=== PATIENT | female | born 1950 | race Caucasian/White ===

== ENCOUNTER → 2017-11-10 | Outpatient (CLI) | payer OTHER, MEDICAID ==
[~2017-11-10] MED LIST: ADVA100A INH; ALBUAER3 INH; ALEN1TAB48 PO; ASPI1TAB57 PO; ASPI81 PO; ATOR20TA15 PO; ATOR20TA42 PO; CARV3.125 PO; CLOP75 PO; COQ-30CA2 PO; ESCI20TA PO; FLUTI110I INH; LEVO25TA4 PO; LEXA20TA PO; LORA1TAB12 PO; MEMA1TAB PO; NEXI40CA PO; NITR1SUB3 SL; RANI150T PO; SERT25TA83 PO; TOPR25TA2 PO; TRAZ50TA12 PO
--- NOTE | 2017-11-10 14:01 | RADRPT ---
EXAM DATE/TIME: 11/10/2017 13:47 [facility] COMPARISON: No previous studies available for comparison. INDICATIONS : Evaluate for pneumothorax, pneumonia, and communicable disease. Preop for knee replacement. MEDICAL HISTORY : Cardiovascular disease. SURGICAL HISTORY : CABG. ENCOUNTER: Initial ACUITY: 1 day PAIN SCORE: 4/10 LOCATION: Left knee FINDINGS: PA and lateral views of the chest demonstrate the lungs to be symmetrically aerated without evidence of mass, infiltrate or effusion. Mediastinal vascular clips. Coronary markers. Median sternotomy wire s. The cardiomediastinal contours are unremarkable. Osseous structures are intact. CONCLUSION: No acute disease. Willy Stroud Jr., MD on November 10, 2017 at 13:57 Board Certified Radiologist. This report was verified electronically.
--- NOTE | 2017-11-11 12:49 | EKG ---
Date Performed: 11/10/2017 Time Performed: 13:12:32 PTAGE: 67 years EKG: Sinus rhythm Right bundle branch block Inferior infarct - age undetermined Left ventricular hypertrophy by voltag e only Abnormal ECG PREVIOUS TRACING : 08/21/2011 04.56 Since previous tracing, no significant change noted DOCTOR: Dave Denise Interpretating Date/Time 11/11/2017 12:48:26
== END ==
LOC: CPRE 12:13
PROVIDERS: ATTEND Orthopaedic Surgery
DX: Z01.810 Encounter for preprocedural cardiovascular examination (principal); Z01.811 Encounter for preprocedural respiratory examination; Z01.812 Encounter for preprocedural laboratory examination; Z01.818 Encounter for other preprocedural examination; M17.12 Unilateral primary osteoarthritis, left knee; R94.31 Abnormal electrocardiogram [ECG] [EKG]
CPT/HCPCS: 71020; 93005

== ENCOUNTER 2017-11-26 07:00 | Inpatient (IN) | payer OTHER, MEDICARE, MEDICAID ==
[~2017-11-26] VITALS: Ht 160 cm; Wt 104.5 kg
[~2017-11-26 07:00] MED LIST changes: -ASPI81 PO; -ATOR20TA42 PO; -CLOP75 PO; -FLUTI110I INH; -LEXA20TA PO; -NEXI40CA PO; -TOPR25TA2 PO
--- NOTE | 2017-12-17 07:08 | HHI.DCPOC ---
Discharge Care Plan Diagnosis: (1) Primary localized osteoarthrosis, lower leg (2) Status post total knee replacement, left Your Health Problems Are: Difficulty with ADL Goals to Promote Your Health * To prevent worsening of your condition and complications * To maintain your health at the optimal level Directions to Meet Your Goals Take your medications as prescribed Follow your dietary instruction Follow activity as directed Keep your appointments as scheduled Take your immunizations and boosters as scheduled If your symptoms worsen call your PCP, if no PCP go to Urgent Care Center or Emergency Room Smoking is Dangerous to Your Health. Avoid second hand smoke Call the 24-hour hour crisis hotline for domestic abuse at Micha Garrison Dec 17, 2017 07:08
--- NOTE | 2017-12-17 07:09 | HHI.FF ---
Face to Face Verification Diagnosis: (1) Primary localized osteoarthrosis, lower leg (2) Status post total knee replacement, left Physical Therapy Gait training, Transfer training, bed to chair Knee: Total knee Left LE Weight Bearing: WB as tolerated Left LE Range of Motion: Active ROM Nursing Nursing: Nikki teaching Dressing Changes: Do not change dressing Additional Instructions First dressing change in office I have seen patient Karlene Mendez on 12/17/17. My clinical findings support the need for the requested home health care services because: Limited ability to care for self High risk of falls I certify that my clinical findings support that this patient is homebound because: Post-op weakness Unsteady gait/balance Micha Garrison Dec 17, 2017 07:09
[2017-12-17] MEDS ORDERED: WALKER WHEELS/F1 MIS (07:10)
[2017-12-17] MEDS ORDERED: CPMMACHINE (07:10)
[2017-12-17] MEDS ORDERED: COMMODE 3-IN-11 MIS (07:10)
[2017-12-17] MEDS ORDERED: SODIUM CHLORID 0.9% 500 ML IV PRN (07:30)
[2017-12-17] MEDS ORDERED: CHLORHEXIDINE GLUCONATE 2 % 1 PACK (2 CLOTHS) TOPICAL PRN (07:30)
[2017-12-17] MEDS ORDERED: METOPROLOL TARTRATE 25 MG TAB PO PRN (07:30)
[2017-12-17] MEDS ORDERED: POVIDONE IODINE 5% (ANTISEPSIS KIT) 4 APPLICATIONS EACH NARE PRN (07:30)
[2017-12-17] MEDS ORDERED: LACTATED RINGER'S 1000 ML IV PRN (07:30)
[2017-12-17] MEDS ORDERED: ceFAZolin 2 GM PREMIX 50 ML IV SCH (07:45)
[2017-12-17] MEDS ORDERED: POVIDONE IODINE 7.5% SCRUB 118 ML BOTTLE TOPICAL SCH (07:45)
[2017-12-17] MEDS ORDERED: VANCOMYCIN 1000 MG/NS 250 ML (for <70 kg) IV SCH ×2 (07:45)
[2017-12-17] MEDS ORDERED: DEXAMETHASONE SOD PHOS 20 MG/5 ML VIAL IV ONE (08:00)
[2017-12-17] MEDS ORDERED: SODIUM CHLORIDE 0.9% IV SCH ×2 (08:00→15:00)
[2017-12-17] MEDS ORDERED: TRANEXAMIC ACID IV SCH ×2 (08:00→15:00)
[2017-12-17] MEDS ORDERED: BACT800T5 PO (08:36)
[2017-12-17] MEDS ORDERED: BUPIVACAINE LIPOSOME PF 1.3% 20 ML VIAL ONE (11:55)
[2017-12-17] MEDS ORDERED: SODIUM CHLORIDE 0.9% 20 ML VIAL IV ONE (12:00)
[2017-12-17] MEDS ORDERED: LACTATED RINGER'S 1000 ML INJ 1,000 ML IV ONE (12:00)
[2017-12-17] MEDS ORDERED: ROCURONIUM INJ 50 MG/5 ML SYRINGE IV PUSH ONE (12:00)
[2017-12-17] MEDS ORDERED: GLYCOPYRROLATE 1 MG/5 ML SYRINGE IV PUSH ONE (12:00)
[2017-12-17] MEDS ORDERED: NEOSTIGMINE 5 MG/5 ML SYRINGE IV PUSH ONE (12:00)
[2017-12-17] MEDS ORDERED: PROPOFOL 200 MG/20 ML AMP IV ONE (12:00)
[2017-12-17] MEDS ORDERED: ONDANSETRON HCL 4 MG/2 ML VIAL IV ONE (12:00)
[2017-12-17] MEDS ORDERED: LIDOCAINE HCL 1% PF 5 ML SYRINGE OTHER ONE (12:00)
[2017-12-17] MEDS ORDERED: ACETAMINOPHEN 1000 MG/100 ML 100 ML IV ONE (12:04)
[2017-12-17] MEDS ORDERED: HYDROmorphone HCL PF 2 MG/ML VIAL ONE (12:47)
[2017-12-17] MEDS: ROPIVACAINE PERI-ARTICULAR INJECTION. P-ARTICULR SCH ×5 (12:50)
[2017-12-17] MEDS ORDERED: NITROGLYCERIN 0.4 MG SL 25 TABS/BTL SL PRN (13:45)
--- NOTE | 2017-12-17 13:50 | PD.OP ---
cc: Neno Tello MD Operative Report Date of Surgery: Dec 17, 2017 Preoperative Diagnosis: Left knee severe osteoarthritis Postoperative Diagnosis: Same Procedure: Left total knee arthroplasty Anesthesia: Adductor canal block and general Surgeon: Neno Tello Shift Supervisor Rn(s): TOM Briscoe The surgical procedure was assisted by my Advanced Registered Nurse Practitioner. My [employer] presence was necessary throughout this case for the manipulation and positioning of the surgical extremity. My [employer] was assisting me throughout the duration of this procedure. The skill set of an Advance Registered Nurse Practitioner was medically necessary to complete this procedure. During the surgical case, the nursing surgical services director was working at the back table and the Advance Registered Nurse Practitioner was directly assisting me. Operation and Findings: IMPLANTS: DePuy Attune: Patella: size 35. Femur, posterior stabilized size 7. Tibia, rotating platform size 5. Tibial insert, rotating platform, posterior stabilized size 6 mm thickness. ESTIMATED BLOOD LOSS: 200 cc TOURNIQUET TIME: 44 minutes at 250 mmHg pressure. JUSTIFICATION FOR PROCEDURE: The patient has end-stage osteoarthritis to the knee. There is an attached conservative measures pathway form in the chart that describes the nonoperative measures that were undertaken prior to consideration of surgical management. The patient understood the risks and benefits of surgical management. See my office notes for further details PROCEDURE: The patient was brought back to the operative theatre. Adequate anesthesia was obtained. The patient received intravenous vancomycin and Ancef. The lower extremity was prepped and draped in the usual sterile fashion.The leg was exsanguinated, the tourniquet was raised. A standard anterior incision was performed followed by medial parapatellar arthrotomy was performed. End-stage arthritis was identified. Osteotomy of the patella was performed. We drilled holes for the patella. We trialed the patella component. We placed an intramedullary guide into the distal femur. We ultimately resected 14 mm off of the distal femur in 5 degrees of valgus. The remnants of the ACL and PCL were resected. Osteotomy of the proximal tibia was performed, resecting 7 mm off of the medial side. This was done with 3 degrees of posterior slope using an extramedullary guide. The distal end of the guide was placed in the mid aspect of the ankle. The femur was sized, and four chamfer cuts were completed in 3 of external rotation. We then cut the central box in the distal femur to replace the PCL. We resected the remnants of the menisci and removed osteophytes off of the femur and tibia. We then trialed the knee. We punched the tibia for the keel, and then used standard technique to cement in components. Excess cement was removed. We trialed the knee again and the final polyethylene thickness was chosen to provide extension to 0 degrees, and flexion of 140 degrees to gravity. The ligaments were appropriately balanced. Lateral release was necessary to obtain excellent patellofemoral tracking. The tourniquet was released and adequate hemostasis was obtained. An intra- articular injection of a ropivacaine cocktail was injected. The posterior knee was inspected for excess cement, which was removed. The final polyethylene was put into position after thorough irrigation. We then closed deep fascia with a #2 Stratafix followed by skin with 2-0 Vicryl followed by paige. Postop plan is to weight-bear as tolerated. DVT prophylaxis will be performed with Jaxon, DARRYL fontana, early mobilization, and Lovenox followed by aspirin. Neno Tello MD Dec 17, 2017 13:50
[2017-12-17] MEDS ORDERED: ASPI-183 PO (13:51)
[2017-12-17] MEDS ORDERED: NORC5TAB PO (13:51)
[2017-12-17] MEDS ORDERED: ENOX40IN SQ (13:51)
[2017-12-17] MEDS ORDERED: MAGNESIUM HYDROXIDE SUSP 30 ML CUP PO PRN (14:00)
[2017-12-17] MEDS ORDERED: MORPHINE SULFATE 4 MG/ML INJ IV PUSH PRN (14:00)
[2017-12-17] MEDS ORDERED: ALUMINUM/MAGNESIUM/SIMETH 30 ML CUP PO PRN (14:00)
[2017-12-17] MEDS ORDERED: ONDANSETRON HCL 4 MG/2 ML VIAL IVP PRN (14:00)
[2017-12-17] MEDS ORDERED: ACETAMINOPHEN/HYDROcodone 325 MG/5 MG TAB PO PRN (14:00)
[2017-12-17] MEDS ORDERED: diphenhydrAMINE HCL 50 MG/ML VIAL IV PUSH PRN (14:00)
[2017-12-17] MEDS ORDERED: Post-op Orders (for Pharmacy) XX ONE (14:00)
[2017-12-17] MEDS ORDERED: NALOXONE HCL 0.4 MG/ML AMP IV PUSH PRN (14:00)
[2017-12-17] MEDS ORDERED: BISACODYL 10 MG SUPP RECTAL PRN (14:00)
[2017-12-17] MEDS ORDERED: DO NOT ADM ANY ANTICOAGULANT DRUGS PRN (14:24)
[2017-12-17] MEDS ORDERED: LORazepam 1 MG TAB PO PRN (14:30)
[2017-12-17] MEDS ORDERED: PILL SPLITTER OTHER PRN (14:45)
[2017-12-17] MEDS ORDERED: ALBUTEROL SULFATE 90 MCG/ACT HFA 18 GM INHALER INH PRN (14:45)
[2017-12-17] MEDS ORDERED: *morphine SULFATE 4 MG/ML PERIprocedure ONLY ONE (14:55)
--- NOTE | 2017-12-17 14:59 | RADRPT ---
EXAM DATE/TIME: 12/17/2017 14:37 [facility] COMPARISON: No previous studies available for comparison. INDICATIONS : Post op left total knee. MEDICAL HISTORY : Cardiovascular disease. SURGICAL HISTORY : CABG. ENCOUNTER: Initial ACUITY: 1 day PAIN SCORE: 8/10 LOCATION: Left Knee FINDINGS: Two view examination of the left knee demonstrates no evidence of fracture or dislocation. Left knee arthroplasty. Postsurgical changes. CONCLUSION: Left knee arthroplasty. Jaron Lorenz MD on December 17, 2017 at 14:56 Board Certified Radiologist. This report was verified electronically.
[2017-12-17 16:15] VITALS: BP 143/73; PULSE 83; RESP 18; TEMP 95.8; O2SAT 96
--- NOTE | 2017-12-17 17:18 | PD.CONS ---
HPI Service [facility] Consult Requested By Reason for Consult Medical management Primary Care Physician Norris Mckeon M.D. Diagnoses: History of Present Illness Patient is a very pleasant 67 years old female who is admitted under orthopedic services and underwent left knee replacement. Apparently has been having left knee pain bothering her for years and lately for the past 3 months with increasing pain and had had to use a cane to assist with ambulation [facility] consulted for medical management. On further, history, patient was also being treated for UTI and is on a course of Bactrim. Patient currently denies any fever chills no urinary symptoms. Review of Systems Constitutional: DENIES: Fever, Weight loss, Chills, Change in appetite Eyes: DENIES: Blurred vision, Double Vision Ears, nose, mouth, throat: DENIES: Tinnitus, Ear Pain, Epistaxis, Odynophagia Respiratory: DENIES: Cough, Hemoptysis, Sputum production, Shortness of breath Cardiovascular: DENIES: Chest pain, Palpitations, Dyspnea on Exertion, Lower Extremity Edema, Orthopnea Gastrointestinal: DENIES: Black stools, Bloody stools, Difficulty Swallowing, Anorexia Genitourinary: DENIES: Urgency, Hematuria, Vaginal discharge Musculoskeletal: DENIES: Joint pain, Stiffness Integumentary: DENIES: Pruritus Hematologic/lymphatic: DENIES: Bruising Immunologic/allergic: DENIES: Urticaria Neurologic: DENIES: Headache, Speech Problems, Tremor Psychiatric: DENIES: Suicidal Ideation, Homicidal Ideation Past Family Social History Allergies: Coded Allergies: No Known Allergies (Verified Allergy, Unknown, 12/17/17) Past Medical History Hypertension Hypothyroidism Depression GERD History of obstructive sleep apnea History of anxiety disorder Past Surgical History Denies any major surgeries Reported Medications Aspirin Alendronate 8 pravastatin Coreg Levothyroxine Trazodone Sertraline Synthroid Lorazepam when necessary Protonix Family History Noncontributory Social History Denies smoking alcohol or substance abuse Physical Exam Vital Signs Vital Signs Date Time Temp Pulse Resp B/P (MAP) Pulse Ox O2 Delivery O2 Flow Rate FiO2 12/17/17 15:45 83 16 146/65 (92) 95 Nasal Cannula 3 12/17/17 15:30 82 16 145/64 (91) 93 Nasal Cannula 3 12/17/17 15:15 81 16 146/64 (91) 93 Nasal Cannula 3 12/17/17 15:00 81 16 148/64 (92) 93 Nasal Cannula 3 12/17/17 14:45 82 16 142/63 (89) 94 Nasal Cannula 3 12/17/17 14:30 80 16 143/64 (90) 94 Nasal Cannula 3 12/17/17 14:21 98.4 88 16 138/66 (90) 93 Nasal Cannula 3 12/17/17 08:37 97.8 69 18 135/70 (91) 97 Physical Exam GENERAL: T in no apparent distress. SKIN: No rashes, ecchymoses or lesions. Cool and dry. HEAD: Atraumatic. Normocephalic. No temporal or scalp tenderness. EYES: Pupils equal round and reactive. Extraocular motions intact. No scleral icterus. No injection or drainage. ENT: Nose without bleeding, purulent drainage or septal hematoma. Throat without erythema, tonsillar hypertrophy or exudate. Uvula midline. Airway patent. NECK: Trachea midline. No JVD or lymphadenopathy. Supple, nontender, no meningeal signs. CARDIOVASCULAR: Regular rate and rhythm without murmurs, gallops, or rubs. RESPIRATORY: Clear to auscultation. Breath sounds equal bilaterally. No wheezes , rales, or rhonchi. GASTROINTESTINAL: Abdomen soft, non-tender, nondistended. No hepato-splenomegaly , or palpable masses. No guarding. MUSCULOSKELETAL: Extremities without clubbing, cyanosis, or edema. No joint tenderness, effusion, or edema noted. No calf tenderness. Negative Homans sign bilaterally. Left knee postop dressing in place NEUROLOGICAL: Awake and alert. Cranial nerves II through XII intact. Motor and sensory grossly within normal limits. . Normal speech. Imaging Last Impressions Knee X-Ray 12/17/17 5567 Signed Impressions: Service Date/Time: Sunday, December 17, 2017 14:37 - CONCLUSION: Left knee arthroplasty. Jaron Lorenz MD Assessment and Plan Assessment and Plan 67-year-old female admitted Status post left total knee replacement secondary to severe osteoarthritis Orthopedics following History of hyperreactive airway disease-in remission History of obstructive sleep apnea Continue on inhalers home BiPAP machine at bedside for nighttime use hypertension continue Coreg hypothyroidism continue levothyroxine History of GERD continue on PPI Hyperlipidemia on statins History of depression/anxiety. Continue on trazodone sertraline and lorazepam 1 mg twice a day when necessary REcent UTI- complete course of Bactrim DVT prophylaxis per orthopedic service Discharge planning patient prefers to go to a significant Natalya Nichols MD Dec 17, 2017 17:18
[2017-12-17] MEDS: ACETAMINOPHEN/HYDROcodone 325 MG/5 MG TAB PO PRN (18:45)
[2017-12-17 20:10] VITALS: BP 126/60; PULSE 74; RESP 18; TEMP 96.5; O2SAT 94
[2017-12-17 20:50] VITALS: O2SAT 97
[2017-12-17] MEDS ORDERED: ZOLPIDEM TARTRATE 5 MG TAB PO PRN (21:00)
[2017-12-17] MEDS: SULFAMETHOXAZOLE-TRIMETHOPRIM DS 800-160 MG TAB PO SCH (21:56)
[2017-12-17] MEDS: ATORVASTATIN 20 MG TAB PO SCH (21:56)
[2017-12-17] MEDS: CARVEDILOL 3.125 MG TAB PO SCH (21:57)
[2017-12-17] MEDS: traZODone HCL 50 MG TAB PO SCH (21:57)
[2017-12-17] MEDS: BUDESONIDE-FORMOTEROL 80/4.5 MCG INHALER INH SCH (21:59)
[2017-12-17] MEDS: SODIUM CHLOR 0.9% 1000 ML INJ 1,000 ML IV SCH (22:12)
[2017-12-18 00:20] VITALS: BP 123/60; PULSE 72; RESP 18; TEMP 97.8; O2SAT 92
[2017-12-18 03:30] VITALS: BP 105/52; PULSE 75; RESP 18; TEMP 96.8; O2SAT 94
[2017-12-18 05:23] LABS: HEMATOCRIT 32.1 % (35.0-46.0); HEMOGLOBIN 10.8 GM/DL (11.6-15.3); MEAN CELL VOLUME 84.9 FL (80.0-100.0); MEAN CORPUSCULAR HEMOGLOBIN 28.6 PG (27.0-34.0); MEAN CORPUSCULAR HGB CONC 33.7 % (32.0-36.0); MEAN PLATELET VOLUME 8.1 FL (7.0-11.0); PLATELET COUNT 170 TH/MM3 (150-450); RED BLOOD COUNT 3.78 MIL/MM3 (4.00-5.30); RED CELL DISTRIBUTION WIDTH 14.5 % (11.6-17.2); WHITE BLOOD COUNT 12.2 TH/MM3 (4.0-11.0)
[2017-12-18] MEDS: LEVOTHYROXINE SODIUM 25 MCG TAB PO SCH (05:38)
[2017-12-18] MEDS ORDERED: DEXAMETHASONE SOD PHOS 20 MG/5 ML VIAL IV ONE (07:45)
[2017-12-18 08:00] VITALS: BP 118/61; PULSE 65; RESP 18; TEMP 96.1; O2SAT 95
[2017-12-18] MEDS: SERTRALINE HCL 50 MG TAB PO SCH (08:05)
[2017-12-18] MEDS: SULFAMETHOXAZOLE-TRIMETHOPRIM DS 800-160 MG TAB PO SCH ×2 (08:05→21:38)
[2017-12-18] MEDS: CARVEDILOL 3.125 MG TAB PO SCH ×2 (08:05→21:38)
[2017-12-18] MEDS: MEMANTINE HCL 5 MG TAB PO SCH (08:05)
[2017-12-18] MEDS: FAMOTIDINE 20 MG TAB PO SCH ×2 (08:06→21:38)
[2017-12-18] MEDS: ACETAMINOPHEN/HYDROcodone 325 MG/5 MG TAB PO PRN ×4 (08:06→21:46)
[2017-12-18] MEDS: SODIUM CHLOR 0.9% 1000 ML INJ 1,000 ML IV SCH ×2 (10:30→20:30)
[2017-12-18 12:00] VITALS: BP 129/56; PULSE 66; RESP 18; TEMP 96.5; O2SAT 93
[2017-12-18] MEDS: ENOXAPARIN SODIUM 40 MG/0.4 ML SYRINGE SQ SCH (12:40)
[2017-12-18] MEDS: BUDESONIDE-FORMOTEROL 80/4.5 MCG INHALER INH SCH ×2 (12:42→21:37)
--- NOTE | 2017-12-18 12:50 | HHI.PR ---
Subjective Remarks doing great voiding spontaenously pain controlled Objective Vitals Vital Signs Date Time Temp Pulse Resp B/P (MAP) Pulse Ox O2 Delivery O2 Flow Rate FiO2 12/18/17 08:00 96.1 65 18 118/61 (80) 95 12/18/17 03:30 96.8 75 18 105/52 (69) 94 12/18/17 00:20 97.8 72 18 123/60 (81) 92 12/17/17 20:50 97 Nasal Cannula 2.00 12/17/17 20:10 96.5 74 18 126/60 (82) 94 12/17/17 16:15 95.8 83 18 143/73 (96) 96 12/17/17 15:45 83 16 146/65 (92) 95 Nasal Cannula 3 12/17/17 15:30 82 16 145/64 (91) 93 Nasal Cannula 3 12/17/17 15:15 81 16 146/64 (91) 93 Nasal Cannula 3 12/17/17 15:00 81 16 148/64 (92) 93 Nasal Cannula 3 12/17/17 14:45 82 16 142/63 (89) 94 Nasal Cannula 3 12/17/17 14:30 80 16 143/64 (90) 94 Nasal Cannula 3 12/17/17 14:21 98.4 88 16 138/66 (90) 93 Nasal Cannula 3 I/O 12/17/17 12/17/17 12/17/17 12/18/17 12/18/17 12/18/17 06:59 14:59 22:59 06:59 14:59 22:59 Intake Total 1350 ml 580 ml 200 ml 480 ml Output Total 200 ml Balance 1150 ml 580 ml 200 ml 480 ml Intake Oral 480 ml 480 ml IV Total 100 ml 200 ml Other 1350 ml Output Estimated Blood Loss 200 ml # Voids 1 1 # Bowel Movements 0 0 Result Diagram: 12/18/17 0325 Imaging Last Impressions Knee X-Ray 12/17/17 1347 Signed Impressions: Service Date/Time: Sunday, December 17, 2017 14:37 - CONCLUSION: Left knee arthroplasty. Jaron Lorenz MD Objective Remarks awake and alert lungs clear regular rhythma bdomen soft, nontender extremities no edema, no calf swelling ambulated well Procedures 12/17- left TKA A/P Assessment and Plan 67-year-old female admitted Status post left total knee replacement secondary to severe osteoarthritis Orthopedics following History of hyperreactive airway disease-in remission History of obstructive sleep apnea Continue on inhalers home BiPAP machine at bedside for nighttime use hypertension continue Coreg hypothyroidism continue levothyroxine History of GERD continue on PPI Hyperlipidemia on statins History of depression/anxiety. Continue on trazodone sertraline and lorazepam 1 mg twice a day when necessary REcent UTI- complete course of Bactrim x 3 more days days then DC DVT prophylaxis =- Lovenox Discharge planning patient prefers- [facility] Natalya Nichols MD Dec 18, 2017 12:50
--- NOTE | 2017-12-18 12:58 | PD.ORT.PN ---
Subjective Post Op Day #: 1 Subjective Remarks Patient is OOB in chair with minimal pain to the left knee. Pain is better today. Objective Vitals Vital Signs Date Time Temp Pulse Resp B/P (MAP) Pulse Ox O2 Delivery O2 Flow Rate FiO2 12/18/17 08:00 96.1 65 18 118/61 (80) 95 12/18/17 03:30 96.8 75 18 105/52 (69) 94 12/18/17 00:20 97.8 72 18 123/60 (81) 92 12/17/17 20:50 97 Nasal Cannula 2.00 12/17/17 20:10 96.5 74 18 126/60 (82) 94 12/17/17 16:15 95.8 83 18 143/73 (96) 96 12/17/17 15:45 83 16 146/65 (92) 95 Nasal Cannula 3 12/17/17 15:30 82 16 145/64 (91) 93 Nasal Cannula 3 12/17/17 15:15 81 16 146/64 (91) 93 Nasal Cannula 3 12/17/17 15:00 81 16 148/64 (92) 93 Nasal Cannula 3 12/17/17 14:45 82 16 142/63 (89) 94 Nasal Cannula 3 12/17/17 14:30 80 16 143/64 (90) 94 Nasal Cannula 3 12/17/17 14:21 98.4 88 16 138/66 (90) 93 Nasal Cannula 3 I/O 12/17/17 12/17/17 12/17/17 12/18/17 12/18/17 12/18/17 07:00 15:00 23:00 07:00 15:00 23:00 Intake Total 1350 ml 580 ml 200 ml 480 ml Output Total 200 ml Balance 1150 ml 580 ml 200 ml 480 ml Intake Oral 480 ml 480 ml IV Total 100 ml 200 ml Other 1350 ml Output Estimated Blood Loss 200 ml # Voids 1 1 # Bowel Movements 0 0 Result Diagram: 12/18/17 0325 Imaging Last 24 hours Impressions Knee X-Ray 12/17/17 1347 Signed Impressions: Service Date/Time: Sunday, December 17, 2017 14:37 - CONCLUSION: Left knee arthroplasty. Jaron Lorenz MD Procedures Left TKA Objective Remarks Dressing is C/D/I. Calf is soft and nontender. EHL/TA/G intact. 2+ pedal pulse. + SILT. Assessment & Plan Ortho Post Op Day #: 1 Problem List: Assessment and Plan POD #1: Left TKA 1. WBAT LLE 2. Lovenox followed by ASA for DVT prophylaxis 3. Maintain dressing. No dressing changes 4. Stable for discharge to SNF. Anticipatory discharge to [facility] on Friday. 5. F/U with Dr. Tello or TOM Luque in the office Micha Garrison Dec 18, 2017 12:58
[2017-12-18 16:00] VITALS: BP 121/53; PULSE 64; RESP 18; TEMP 95.6; O2SAT 92
[2017-12-18 20:00] VITALS: BP 119/51; PULSE 67; RESP 18; TEMP 96.2; O2SAT 96
[2017-12-18] MEDS: DOCUSATE SODIUM 100 MG CAP PO SCH (21:38)
[2017-12-18] MEDS: ATORVASTATIN 20 MG TAB PO SCH (21:38)
[2017-12-18] MEDS: traZODone HCL 50 MG TAB PO SCH (21:38)
[2017-12-18] MEDS: MULTIVITAMINS/MINERALS THERAPEUTIC TAB PO SCH (21:38)
[2017-12-19] VITALS: BP 108/50; PULSE 65; RESP 17; TEMP 96.4; O2SAT 96
[2017-12-19 05:15] LABS: HEMATOCRIT 30.7 % (35.0-46.0); HEMOGLOBIN 10.4 GM/DL (11.6-15.3); MEAN CELL VOLUME 85.5 FL (80.0-100.0); MEAN PLATELET VOLUME 8.1 FL (7.0-11.0); PLATELET COUNT 157 TH/MM3 (150-450); RED BLOOD COUNT 3.59 MIL/MM3 (4.00-5.30); RED CELL DISTRIBUTION WIDTH 14.5 % (11.6-17.2); WHITE BLOOD COUNT 8.4 TH/MM3 (4.0-11.0)
[2017-12-19] MEDS: ACETAMINOPHEN/HYDROcodone 325 MG/5 MG TAB PO PRN ×3 (05:22→14:27)
[2017-12-19] MEDS: LEVOTHYROXINE SODIUM 25 MCG TAB PO SCH (05:22)
[2017-12-19] MEDS: SODIUM CHLOR 0.9% 1000 ML INJ 1,000 ML IV SCH (06:30)
[2017-12-19 07:29] VITALS: BP 119/59; PULSE 60; RESP 18; TEMP 96.8; O2SAT 95
[2017-12-19] MEDS: SERTRALINE HCL 50 MG TAB PO SCH (08:31)
[2017-12-19] MEDS: SULFAMETHOXAZOLE-TRIMETHOPRIM DS 800-160 MG TAB PO SCH (08:31)
[2017-12-19] MEDS: FAMOTIDINE 20 MG TAB PO SCH (08:31)
[2017-12-19] MEDS: MEMANTINE HCL 5 MG TAB PO SCH (08:31)
[2017-12-19] MEDS: MULTIVITAMINS/MINERALS THERAPEUTIC TAB PO SCH (08:31)
[2017-12-19] MEDS: CARVEDILOL 3.125 MG TAB PO SCH (08:31)
[2017-12-19] MEDS: BUDESONIDE-FORMOTEROL 80/4.5 MCG INHALER INH SCH (08:31)
[2017-12-19] MEDS: DOCUSATE SODIUM 100 MG CAP PO SCH (08:31)
[2017-12-19 11:26] VITALS: BP 132/52; PULSE 68; RESP 18; TEMP 95.5; O2SAT 95
--- NOTE | 2017-12-19 12:09 | PD.ORT.PN ---
Subjective Post Op Day #: 2 Subjective Remarks Patient is resting in bed using CPM. Patient reports mild pain to the left knee. Objective Vitals Vital Signs Date Time Temp Pulse Resp B/P (MAP) Pulse Ox O2 Delivery O2 Flow Rate FiO2 12/19/17 11:26 95.5 68 18 132/52 (78) 95 12/19/17 10:51 17 12/19/17 07:29 96.8 60 18 119/59 (79) 95 12/19/17 00:00 96.4 65 17 108/50 (69) 96 12/18/17 20:00 96.2 67 18 119/51 (73) 96 12/18/17 16:00 95.6 64 18 121/53 (75) 92 I/O 12/18/17 12/18/17 12/18/17 12/19/17 12/19/17 12/19/17 07:00 15:00 23:00 07:00 15:00 23:00 Intake Total 200 ml 1080 ml 360 ml 360 ml Balance 200 ml 1080 ml 360 ml 360 ml Intake Oral 1080 ml 360 ml 360 ml IV Total 200 ml # Voids 3 2 2 # Bowel Movements 0 0 0 Result Diagram: 12/19/17 0407 Imaging Last 24 hours Impressions Knee X-Ray 12/17/17 1347 Signed Impressions: Service Date/Time: Sunday, December 17, 2017 14:37 - CONCLUSION: Left knee arthroplasty. Jaron Lorenz MD Procedures Left TKA Objective Remarks Dressing is C/D/I. Calf is soft and nontender. EHL/TA/G intact. 2+ pedal pulse. + SILT. Assessment & Plan Ortho Post Op Day #: 2 Problem List: Assessment and Plan POD #2: Left TKA 1. WBAT LLE 2. Lovenox followed by ASA for DVT prophylaxis 3. Maintain dressing. No dressing changes 4. Stable for discharge to SNF. Anticipatory discharge to [facility] on Friday or Friday. 5. F/U with Dr. Tello or TOM Luque in the office Micha Garrison Dec 19, 2017 12:09
--- NOTE | 2017-12-19 13:38 | HHI.PR ---
Subjective Remarks Ms Mendez is doing very well with PT very motivated Objective Vitals Vital Signs Date Time Temp Pulse Resp B/P (MAP) Pulse Ox O2 Delivery O2 Flow Rate FiO2 12/19/17 11:26 95.5 68 18 132/52 (78) 95 12/19/17 10:51 17 12/19/17 07:29 96.8 60 18 119/59 (79) 95 12/19/17 00:00 96.4 65 17 108/50 (69) 96 12/18/17 20:00 96.2 67 18 119/51 (73) 96 12/18/17 16:00 95.6 64 18 121/53 (75) 92 I/O 12/18/17 12/18/17 12/18/17 12/19/17 12/19/17 12/19/17 07:00 15:00 23:00 07:00 15:00 23:00 Intake Total 200 ml 1080 ml 360 ml 360 ml Balance 200 ml 1080 ml 360 ml 360 ml Intake Oral 1080 ml 360 ml 360 ml IV Total 200 ml # Voids 3 2 2 # Bowel Movements 0 0 0 Result Diagram: 12/19/17 0407 Imaging Last Impressions Knee X-Ray 12/17/17 1347 Signed Impressions: Service Date/Time: Sunday, December 17, 2017 14:37 - CONCLUSION: Left knee arthroplasty. Jaron Lorenz MD Objective Remarks awake and alert lungs clear regular rhythm abdomen soft, nontender extremities no edema, no calf swelling, post op dressing in place ambulated well Procedures 12/17- left TKA A/P Assessment and Plan 67-year-old female admitted Status post left total knee replacement secondary to severe osteoarthritis Orthopedics following History of hyperreactive airway disease-in remission History of obstructive sleep apnea Continue on inhalers home BiPAP machine at bedside for nighttime use hypertension continue Coreg hypothyroidism continue levothyroxine History of GERD continue on PPI Hyperlipidemia on statins History of depression/anxiety. Continue on trazodone sertraline and lorazepam 1 mg twice a day when necessary REcent UTI- complete course of Bactrim till 12/20 DVT prophylaxis =- Lovenox Discharge planning patient prefers- [facility] tomorrow Natalya Nichols MD Dec 19, 2017 13:38
[2017-12-19] MEDS: ENOXAPARIN SODIUM 40 MG/0.4 ML SYRINGE SQ SCH (14:26)
[2017-12-19 15:44] VITALS: BP 147/56; PULSE 69; RESP 18; TEMP 95.8; O2SAT 95
--- NOTE | 2017-12-21 13:10 | HHI.DS ---
Discharge Summary Admission Date Dec 17, 2017 at 06:46 Discharge Date: Dec 19, 2017 Admitting Diagnosis Primary localized OA, lower leg Status post total knee replacement, left Diagnosis: (1) Primary localized osteoarthrosis, lower leg Diagnosis: Principal ICD Codes: M17.10 - Unilateral primary osteoarthritis, unspecified knee (2) Status post total knee replacement, left Diagnosis: Principal ICD Codes: Z96.652 - Presence of left artificial knee joint Procedures Left TKA Brief History This is a 67 year old female patient with severe OA of the left knee CBC/BMP: 12/19/17 0407 Significant Findings Laboratory Tests Test 12/19/17 04:07 Red Blood Count 3.59 MIL/MM3 (4.00-5.30) Hemoglobin 10.4 GM/DL (11.6-15.3) Hematocrit 30.7 % (35.0-46.0) PE at Discharge Dressing is C/D/I. Calf is soft and nontender. EHL/TA/G intact. 2+ pedal pulse. + SILT. Hospital Course The patient was admitted to the hospital for severe OA of the left knee to have a left TKA. The patient's surgery went well with no complications. The patient was placed on lovenox followed by ASA for DVT prophylaxis. The patient is WBAT on the LLE. The patient is on a regular diet. The patient was discharged home with home health and will f/u in the office with Dr. Tello or TOM Lquue as previously scheduled. Pt Condition on Discharge: Stable Discharge Disposition: Disch w/ Home Health Serv Discharge Instructions Diet Instructions: As Tolerated, No Restrictions Activities You Can Perform: Weight Bearing as [place] Activities to Avoid: Strenuous Activity Follow up Referrals: Appointment for Follow Up @ [facility] with [facility] New Medications: Aspirin (Aspirin) 325 Mg Tab 325 MG PO DAILY for Prevent Blood Clot, #30 TAB 0 Refills Start Aspirin after Lovenox is completed. Commode 3-in-1 (Commode 3-in-1) 1 Mis Mis EA .ROUTE DIRECTED, #1 0 Refills CPM-Continuous Passive Motion Machine (CPM-Continuous Passive Motion Machine) 1 Ea Device EA .ROUTE DIRECTED, #1 0 Refills Enoxaparin Inj (Enoxaparin Inj) 40 Mg/0.4 Ml Syr 40 MG SQ DAILY for Blood Clot Prevention for 10 Days, #10 SYRINGE 0 Refills Start Aspirin after Lovenox is completed. Hydrocodone-Acetaminophen (Mcbain) 5 Mg-325 Mg Tab 1-2 TAB PO Q4H PRN for PAIN, #40 TAB 0 Refills Walker with Front Wheels (Walker with Front Wheels) 1 Mis Mis EA .ROUTE DIRECTED, #1 0 Refills Continued Medications: Albuterol 8.5 GM Inh (Proair Hfa 8.5 GM Inh) 90 Mcg/Act Aer 2 PUFF INH Q4-6H PRN for SHORTNESS OF BREATH, #1 INHALER 0 Refills 108 mcg/actuation Alendronate (Alendronate) 70 Mg Tab 70 MG PO Q7D for Osteporosis Treatment, #4 TAB 0 Refills Atorvastatin (Atorvastatin) 20 Mg Tab 20 MG PO HS for Cholesterol Management, #30 TAB 0 Refills Carvedilol (Coreg) 3.125 Mg Tab 3.125 MG PO BID, #60 TAB 0 Refills Fluticasone-Salmeterol Inh (Advair Diskus Inh) 100-50 Mcg/Blist Aer 1 PUFF INH BID for Asthma Management, #1 INHALER 0 Refills Rinse mouth after use. Levothyroxine (Levothyroxine) 25 Mcg Tab 25 MCG PO DAILY for Thyroid, #30 TAB 0 Refills Lorazepam (Lorazepam) 1 Mg Tab 1 MG PO Q8H PRN for ANXIETY, TAB 0 Refills Memantine (Memantine) 5 Mg Tab 5 MG PO DAILY for Alzheimer's Dementia, TAB 0 Refills Nitroglycerin SL (Nitroglycerin SL) 0.4 Mg Subl 0.4 MG SL DIRECTED PRN for CHEST PAIN, #100 TAB.SL 0 Refills ONE TABLET UNDER THE TONGUE NEEDED FOR CHEST PAIN, MAY REPEAT EVERY FIVE MINUTES FOR A TOTAL OF 3 DOSES OR CALL 911 IF NO RELIEF Ranitidine (Ranitidine) 150 Mg Tab 150 MG PO DAILY for Heartburn Management, #30 TAB 0 Refills Sertraline (Sertraline) 25 Mg Tab 25 MG PO DAILY, #30 TAB 0 Refills Trazodone (Trazodone) 50 Mg Tab 50 MG PO HS for Control Depression, #30 TAB 0 Refills Discontinued Medications: Aspirin DR (Aspirin 81) 81 Mg Tabdr 81 MG PO DAILY, TAB 0 Refills Coenzyme Q10 (Ubidecarenone) (Coq-10) 30 Mg Cap 1 CAP PO DAILY Micha Garrison Dec 21, 2017 13:10
== END 2017-12-19 17:01 | DRG 470 ==
LOC: HSDI 12-17 06:46 → N06A 12-17 15:53
PROVIDERS: ADMIT Orthopaedic Surgery; ATTEND Orthopaedic Surgery
PROC: 3E0T3BZ Introduction of Anesthetic Agent into Peripheral Nerves and Plexi, Percutaneous Approach (ICD-10-PCS; 2017-12-17)
PROC: 0SRD0J9 Replacement of Left Knee Joint with Synthetic Substitute, Cemented, Open Approach (ICD-10-PCS; principal; 2017-12-17 11:45)
DX: M17.12 Unilateral primary osteoarthritis, left knee (principal); I10 Essential (primary) hypertension; N39.0 Urinary tract infection, site not specified; E03.9 Hypothyroidism, unspecified; G47.33 Obstructive sleep apnea (adult) (pediatric); K21.9 Gastro-esophageal reflux disease without esophagitis; E78.5 Hyperlipidemia, unspecified; I25.2 Old myocardial infarction; I25.10 Atherosclerotic heart disease of native coronary artery without angina pectoris; E66.9 Obesity, unspecified; F32.9 Major depressive disorder, single episode, unspecified; F41.9 Anxiety disorder, unspecified; Z68.39 Body mass index [BMI] 39.0-39.9, adult; Z95.1 Presence of aortocoronary bypass graft; Z95.5 Presence of coronary angioplasty implant and graft
CPT/HCPCS: 73560; 85027; 86850; 86900; 86901; 94150; C1776; C9290; J0131; J0690; J0735; J1100; J1170; J1650; J1885; J2270; J2405; J2710; J2795; J3010; J3370; J7050; J7120; L1830